=== PATIENT | female | born 1960 | race Caucasian/White ===

== ENCOUNTER 2021-08-31 19:15 | Inpatient (IN) | payer BC, OTHER ==
[2021-08-31 19:20] LABS: Glucose,Whole Blood 55 mg/dL (75-99)
[2021-08-31] MEDS ORDERED: DIPH,PERTUS(ACELL)TETVAC-LF 0.5 ML VIAL IM ONE (19:23)
[2021-08-31] MEDS ORDERED: SODIUM CHLORIDE 0.9% 1,000 ML IV STA ×2 (19:23→23:04)
[2021-08-31] MEDS ORDERED: fentaNYL (PF) 50 MCG/ML 2 ML AMP IVP STA (19:26)
[2021-08-31] MEDS ORDERED: DEXTROSE 50% SYRINGE 50 ML IVP STA (19:29)
[2021-08-31 19:46] LABS: Basophils % (A) 0 %; Eosinophils # (A) 0.2 k/uL (0-0.7); Eosinophils % (A) 2 %; HCT 39.6 % (34.0-46.0); HGB 13.3 gm/dL (11.4-16.0); Lymphocytes # (A) 1.2 k/uL (1.0-4.8); Lymphocytes % (A) 14 %; MCH 31.1 pg (25.0-35.0); MCHC 33.5 g/dL (31.0-37.0); Monocytes # (A) 0.4 k/uL (0-1.0); Monocytes % (A) 5 %; Neutrophils # (A) 6.7 k/uL (1.3-7.7); Neutrophils % (A) 77 %; Platelet Count 220 k/uL (150-450); RBC 4.26 m/uL (3.80-5.40); RDW 12.4 % (11.5-15.5); WBC 8.7 k/uL (3.8-10.6)
[2021-08-31 19:54] LABS: Glucose,Whole Blood 110 mg/dL (75-99)
[2021-08-31 20:08] LABS: Partial Thromboplastin Time 21.1 sec (22.0-30.0)
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
[2021-08-31] MEDS ORDERED: MORPHINE SULFATE 4 MG/ML SYRINGE IVP STA (20:37)
--- NOTE | 2021-08-31 20:53 | XR ---
EXAMINATION TYPE: XR ankle complete bilateral DATE OF EXAM: 08/31/2021 COMPARISON: NONE HISTORY: Pain TECHNIQUE: 6 views FINDINGS: There is bilateral plantar and Achilles calcaneal spurring. There is transverse fracture through the medial malleolus of the right ankle. There is no dislocation . Left ankle joint appears anatomic. IMPRESSION: There is nondisplaced medial malleolus fracture of the right ankle. No acute abnormality of the left ankle.
--- NOTE | 2021-08-31 20:54 | XR ---
EXAMINATION TYPE: XR foot complete bilateral DATE OF EXAM: 08/31/2021 COMPARISON: NONE HISTORY: Pain TECHNIQUE: 3 views each foot FINDINGS: Metatarsals are intact. I see no fracture nor dislocation. There is mild bilateral plantar and Achilles calcaneal spurring. The toes appear intact. IMPRESSION: No acute abnormality of the left and right foot.
--- NOTE | 2021-08-31 20:55 | XR ---
EXAMINATION TYPE: XR tibia fibula bilateral DATE OF EXAM: 08/31/2021 COMPARISON: NONE HISTORY: Pain TECHNIQUE: 4 views each tibia and fibula FINDINGS: There is a prosthesis in the medial compartment of the right knee. There is evidence of a 5 mm chip fracture of the head of the right fibula. There is nondisplaced transverse fracture through the medial malleolus of the right ankle. The left tibia and fibula appear intact. Left ankle appears intact. IMPRESSION: Acute fracture of the head of the right fibula and of the medial malleolus of the right a nkle.
--- NOTE | 2021-08-31 20:56 | XR ---
EXAMINATION TYPE: XR hand complete RT DATE OF EXAM: 08/31/2021 COMPARISON: NONE HISTORY: Pain TECHNIQUE: 3 views FINDINGS: Metacarpals are intact. There is minor spurring at the first carpometacarpal joint. There is impacted displaced transverse fracture of the distal radial metaphysis. There is no dislocat ion. There is ulnar styloid process fracture. IMPRESSION: Acute fractures with displacement of the distal radius and ulna.
--- NOTE | 2021-08-31 20:57 | XR ---
EXAMINATION TYPE: XR wrist complete RT DATE OF EXAM: 08/31/2021 COMPARISON: NONE HISTORY: Pain TECHNIQUE: 3 views FINDINGS: There is transverse impacted and comminuted fracture distal radial metaphysis. There is gabriella roximate 12 mm lateral displacement of the distal radius fragment. There is displaced ulnar styloid p rocess fracture. The carpal bones are intact. IMPRESSION: Acute displaced fractures of the distal radius and ulna.
--- NOTE | 2021-08-31 20:58 | XR ---
EXAMINATION TYPE: XR forearm RT DATE OF EXAM: 08/31/2021 COMPARISON: NONE HISTORY: Pain TECHNIQUE: 3 views FINDINGS: There is a transverse fractures of the distal radius and ulna as described in the wrist x-r ay report. The elbow joint is intact. IMPRESSION: Distal radius and ulna displaced fractures.
--- NOTE | 2021-08-31 20:59 | XR ---
EXAMINATION TYPE: XR pelvis AP view DATE OF EXAM: 08/31/2021 COMPARISON: NONE HISTORY: Pain TECHNIQUE: Single view FINDINGS: The thick ring is intact. Proximal femurs and hip joints are intact. There is contrast in t he urinary bladder. Sacroiliac joints are intact. IMPRESSION: No fracture.
--- NOTE | 2021-08-31 21:00 | XR ---
EXAMINATION TYPE: XR elbow complete RT DATE OF EXAM: 08/31/2021 COMPARISON: NONE HISTORY: Pain TECHNIQUE: 3 views FINDINGS: Elbow joint is intact. I see no fracture nor dislocation. There is no sign of elbow joint e ffusion. IMPRESSION: Negative right elbow exam.
--- NOTE | 2021-08-31 21:00 | XR ---
EXAMINATION TYPE: XR chest 1V portable DATE OF EXAM: 08/31/2021 COMPARISON: NONE HISTORY: Pain TECHNIQUE: Single view FINDINGS: Heart and mediastinum are normal. Lungs are clear of consolidation. There is mild subsegmen gomez atelectasis left lung base. There is no pleural effusion. Trachea is midline. Bony thorax appears intact. IMPRESSION: Mild subsegmental atelectasis left lung base. Normal heart.
--- NOTE | 2021-08-31 21:01 | XR ---
EXAMINATION TYPE: XR femur RT DATE OF EXAM: 08/31/2021 COMPARISON: NONE HISTORY: Pain TECHNIQUE: 4 views FINDINGS: Hip joint is intact. There is prosthesis in the medial compartment of the right knee. I see no fracture nor dislocation. There is small right knee joint effusion. IMPRESSION: Small knee joint effusion. No fracture seen.
[2021-08-31 21:14] LABS: Glucose,Whole Blood 84 mg/dL (75-99)
[2021-08-31] MEDS ORDERED: ONDANSETRON 4 MG/2 ML VIAL IVP STA (21:19)
[2021-08-31] MEDS ORDERED: NALOXONE 0.4 MG/ML 1 ML VIAL IV PRN (21:29)
[2021-08-31] MEDS ORDERED: LIDOCAINE 1% INJ 10MG/ML (20 ML MDV) SQ ONE (21:29)
[2021-08-31 22:02] LABS: Amphetamine Screen,Urine Not Detected (NotDetected); Barbiturate Screen,Urine Not Detected (NotDetected); Benzodiazepines Screen,Urine Not Detected (NotDetected); Cocaine Screen,Urine Not Detected (NotDetected); Methadone Screen, Urine Not Detected (NotDetected); Opiate Screen,Urine Not Detected (NotDetected); Oxycodone Screen, Urine Not Detected (NotDetected); Phencyclidine Screen,Urine Not Detected (NotDetected); Tricyclic Antidepressant,Urine Not Detected (NotDetected); Urn Cannabinoid Scrn Not Detected (NotDetected)
[2021-08-31] MEDS ORDERED: TOPICAL SKIN ADHESIVE 1 EACH AMP TOPICAL STA (22:06)
[2021-08-31 22:14] LABS: Appearance,Urine Clear (Clear); Bilirubin,Urine Negative (Negative); Blood,Urine Small (Negative); Color,Urine Yellow; Glucose,Urine (UA) Trace (Negative); Ketones,Urine Negative (Negative); Leukocyte Esterase,Urine Negative (Negative); Mucus,Urine Rare /hpf; Nitrite,Urine Negative (Negative); PH, Urine 5.5 (5.0-8.0); Protein,Urine Trace (Negative); RBC,Urine 25 /hpf (0-5); Specific Gravity,Urine 1.018 (1.001-1.035); Squamous Epithelial Cell,Urine <1 /hpf (0-4); Urobilinogen,Urine <2.0 mg/dL (<2.0); WBC,Urine 1 /hpf (0-5)
[2021-08-31 22:33] LABS: Glucose,Whole Blood 139 mg/dL (75-99)
[2021-08-31] MEDS ORDERED: fentaNYL (PF) 50 MCG/ML 2 ML AMP IVP PRN (23:04)
[2021-08-31 23:21] LABS: ALT 89 U/L (4-34); African American GFR (CKD) >90 (>60 ml/min/1.73 sqM); Albumin 3.8 g/dL (3.5-5.0); Alcohol <10 mg/dL; Anion Gap 9 mmol/L; Blood Urea Nitrogen 14 mg/dL (7-17); Calcium 8.4 mg/dL (8.4-10.2); Carbon Dioxide 18 mmol/L (22-30); Chloride 107 mmol/L (98-107); Glucose 251 mg/dL (74-99); Non-African American GFR(CKD) >90 (>60 ml/min/1.73 sqM); Sodium 134 mmol/L (137-145); Total Bilirubin 0.8 mg/dL (0.2-1.3); Total Protein 6.5 g/dL (6.3-8.2)
[2021-08-31 23:50] LABS: AST 165 U/L (14-36); Alkaline Phosphatase 198 U/L (38-126); Potassium 4.1 mmol/L (3.5-5.1)
[2021-08-31] MEDS: ONDANSETRON 4 MG/2 ML VIAL IVP PRN (23:57)
[2021-08-31] MEDS: SODIUM CHLORIDE 0.9% 1,000 ML IV SCH (23:59)
[2021-09-01] MEDS ORDERED: CALCIUM CARBONATE 500 MG CHEWABLE PO ONE (04:20)
[2021-09-01 05:22] LABS: Glucose,Whole Blood 366 mg/dL (75-99)
[2021-09-01] MEDS: ONDANSETRON 4 MG/2 ML VIAL IVP PRN (06:39)
[2021-09-01] MEDS: LEVOTHYROXINE 112 MCG TAB PO SCH (06:40)
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
[2021-09-01 07:56] LABS: Glucose,Whole Blood 206 mg/dL (75-99)
[2021-09-01] MEDS: INSULIN ASPART (NovoLOG) 100 UNIT/ML VIAL SQ SCH ×3 (07:57→21:26)
[2021-09-01] MEDS: SODIUM CHLORIDE 0.9% 1,000 ML IV SCH ×2 (08:19→22:26)
[2021-09-01] MEDS ORDERED: HYDROcodone/APAP 7.5-325MG 1 EACH TAB PO PRN (08:32)
[2021-09-01] MEDS ORDERED: ACETAMINOPHEN TAB 325 MG TAB PO PRN (08:32)
[2021-09-01] MEDS ORDERED: INSULIN NPH 300 UNIT/3 ML VIAL SQ SCH ×2 (09:00→21:00)
[2021-09-01 09:03] LABS: ALT 79 U/L (4-34); African American GFR (CKD) >90 (>60 ml/min/1.73 sqM); Albumin 3.8 g/dL (3.5-5.0); Anion Gap 6 mmol/L; Blood Urea Nitrogen 11 mg/dL (7-17); Calcium 9.2 mg/dL (8.4-10.2); Carbon Dioxide 23 mmol/L (22-30); Chloride 104 mmol/L (98-107); Glucose 210 mg/dL (74-99); Non-African American GFR(CKD) >90 (>60 ml/min/1.73 sqM); Sodium 133 mmol/L (137-145); Total Bilirubin 1.3 mg/dL (0.2-1.3); Total Protein 6.7 g/dL (6.3-8.2)
[2021-09-01 09:04] LABS: AST 108 U/L (14-36); Potassium 4.5 mmol/L (3.5-5.1)
[2021-09-01 09:05] LABS: Alkaline Phosphatase 182 U/L (38-126)
[2021-09-01 09:18] LABS: Basophils % (A) 0 %; Eosinophils % (A) 0 %; HGB 12.1 gm/dL (11.4-16.0); Lymphocytes # (A) 0.5 k/uL (1.0-4.8); Lymphocytes % (A) 5 %; MCH 30.5 pg (25.0-35.0); MCHC 31.8 g/dL (31.0-37.0); MCV 95.7 fL (80.0-100.0); Mean Platelet Volume 7.3; Monocytes # (A) 0.3 k/uL (0-1.0); Monocytes % (A) 4 %; Neutrophils # (A) 7.7 k/uL (1.3-7.7); Neutrophils % (A) 90 %; Platelet Count 214 k/uL (150-450); RBC 3.97 m/uL (3.80-5.40); RDW 12.7 % (11.5-15.5); WBC 8.6 k/uL (3.8-10.6)
[2021-09-01 09:27] LABS: Prothrombin Time 11.1 sec (9.0-12.0)
[2021-09-01] MEDS: HEPARIN SODIUM,PORCINE/PF 5,000 UNIT/0.5 ML SYRINGE SQ SCH ×3 (10:34→23:33)
[2021-09-01] MEDS: FAMOTIDINE 20 MG/2 ML VIAL IV SCH ×2 (10:34→22:23)
[2021-09-01] MEDS: HYDROmorphone 1 MG/ML 1 ML SYRINGE IVP PRN (10:35)
[2021-09-01] MEDS ORDERED: ONDANSETRON 4 MG/2 ML VIAL IVP PRN (11:01)
[2021-09-01 11:47] LABS: Glucose,Whole Blood 239 mg/dL (75-99)
[2021-09-01] MEDS: KETOROLAC 30 MG/ML 1 ML VIAL IVP SCH ×3 (12:51→23:32)
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
[2021-09-01 16:55] LABS: Glucose,Whole Blood 294 mg/dL (75-99)
[2021-09-01] MEDS ORDERED: IV FLUID CONTINUATION 1,000 ML IV ONE (17:10)
[2021-09-01] MEDS ORDERED: ONDANSETRON 4 MG/2 ML VIAL IVP ONE (17:19)
[2021-09-01] MEDS ORDERED: INSULIN ASPART (NovoLOG) 100 UNIT/ML VIAL SQ ONE ×2 (17:23→20:44)
[2021-09-01] MEDS ORDERED: MIDAZOLAM 2 MG/2 ML VIAL IVP ONE (17:26)
[2021-09-01] MEDS ORDERED: fentaNYL (PF) 50 MCG/ML 2 ML AMP IVP ONE (17:27)
[2021-09-01] MEDS ORDERED: ALBUTEROL NEBULIZED 2.5 MG/3 ML INHALATION PRN (18:33)
[2021-09-01] MEDS ORDERED: LIDOCAINE 1%-EPI 1:100,000 20 ML VIAL ONE (18:34)
[2021-09-01] MEDS ORDERED: PROPOFOL 10 MG/ML 20 ML VIAL IV ONE (18:34)
[2021-09-01] MEDS ORDERED: HYDROmorphone (PF) 1 MG/ML ONE (18:34)
[2021-09-01] MEDS ORDERED: MIDAZOLAM 2 MG/2 ML VIAL ONE (18:34)
[2021-09-01] MEDS ORDERED: SUCCINYLCHOLINE CHLORIDE 100 MG/5 ML SYR IV ONE (18:34)
[2021-09-01] MEDS ORDERED: fentaNYL (PF) 50 MCG/ML 2 ML AMP ONE (18:34)
[2021-09-01] MEDS ORDERED: LIDOCAINE 1% INJ 10MG/ML (20 ML MDV) ONE (18:34)
[2021-09-01] MEDS ORDERED: ROPIVACAINE 5 MG/ML 30 ML VIAL ONE (18:34)
[2021-09-01] MEDS ORDERED: SODIUM CHLORIDE 0.9% 100 ML with ceFAZolin 2,000 MG IV ONE ×2 (18:50)
--- NOTE | 2021-09-01 19:09 | P.ANPRN ---
Procedure Note - Anesthesia - Nerve Block Performed Right Supraclavicular Single Time Out Performed: Yes Date of Procedure: 09/01/21 Procedure Start Time: 17:25 Procedure Stop Time: 17:24 Location of Patient: PreOp Indication: Requested by Surgeon Specifically requested for management of pain by : Marques Rizzo Sedation Type: Sedate with meaningful contact maintained Preparation: Sterile Prep Position: Supine Needle Types: Pajunk Needle Gauge: 21 Ultrasound used to visualize needle placement: Yes Ultrasound used to observe medication spread: Yes Injectate: 0.5% Ropivacaine (see comment for volume) (10 ml + Lidocaine 10 ml 1% with epi 1/200 k) Blood Aspirated: No Pain Paresthesia on Injection Noted: No Resistance on Injection: Normal Image Stored and Saved: Yes Events: Uneventful and Well Tolerated
[2021-09-01] MEDS ORDERED: ceFAZolin 1,000 MG in SODIUM CHLORIDE 0.9% 1,000 ML IRRIGATION ONE (19:12)
[2021-09-01] MEDS: ALBUTEROL NEBULIZED 2.5 MG/3 ML INHALATION SCH (19:19)
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
[2021-09-01 20:42] LABS: Glucose,Whole Blood 243 mg/dL (75-99)
[2021-09-01] MEDS ORDERED: HYDROmorphone 0.2 MG/1 ML SYRINGE IVP PRN (20:42)
[2021-09-01] MEDS ORDERED: HYDROmorphone 0.5 MG/0.5 ML SYRINGE IVP ONE ×2 (20:50→20:56)
[2021-09-01] MEDS ORDERED: LACTATED RINGERS 1,000 ML IV ONE (20:54)
--- NOTE | 2021-09-01 21:36 | XR ---
INDICATION PROVIDED: Intraoperative right wrist ORIF. COMPARISON: Radiographs 08/31/2021. TECHNIQUE: 2 stored intraoperative fluoroscopic images of the right wrist in the AP and lateral proje ctions were created. FINDINGS: Intraoperative fluoroscopic images of the right wrist obtained during ORIF. Total fluoroscopic time is 37 seconds. IMPRESSION: Intraoperative right wrist ORIF. Please see operative report for details.
[2021-09-01] MEDS: PANTOPRAZOLE 40 MG/10 ML VIAL IVP SCH (22:23)
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
[2021-09-02] MEDS: LEVOTHYROXINE 112 MCG TAB PO SCH (05:51)
[2021-09-02] MEDS: KETOROLAC 30 MG/ML 1 ML VIAL IVP SCH ×2 (05:51→12:23)
[2021-09-02] MEDS: SODIUM CHLORIDE 0.9% 1,000 ML IV SCH ×2 (05:52→15:06)
[2021-09-02 06:07] LABS: Basophils % (A) 0 %; Eosinophils # (A) 0.1 k/uL (0-0.7); Eosinophils % (A) 1 %; HCT 38.4 % (34.0-46.0); HGB 12.1 gm/dL (11.4-16.0); Hypochromasia Slight; Lymphocytes # (A) 0.7 k/uL (1.0-4.8); Lymphocytes % (A) 8 %; MCH 31.1 pg (25.0-35.0); MCHC 31.5 g/dL (31.0-37.0); MCV 98.5 fL (80.0-100.0); Mean Platelet Volume 7.7; Monocytes # (A) 0.5 k/uL (0-1.0); Monocytes % (A) 6 %; Neutrophils # (A) 6.7 k/uL (1.3-7.7); Neutrophils % (A) 82 %; Platelet Count 186 k/uL (150-450); RBC 3.89 m/uL (3.80-5.40); RDW 12.6 % (11.5-15.5); WBC 8.1 k/uL (3.8-10.6)
[2021-09-02 06:31] LABS: ALT 59 U/L (4-34); AST 54 U/L (14-36); African American GFR (CKD) >90 (>60 ml/min/1.73 sqM); Albumin 3.4 g/dL (3.5-5.0); Alkaline Phosphatase 159 U/L (38-126); Anion Gap 9 mmol/L; Blood Urea Nitrogen 12 mg/dL (7-17); Calcium 8.7 mg/dL (8.4-10.2); Carbon Dioxide 19 mmol/L (22-30); Chloride 107 mmol/L (98-107); Glucose 286 mg/dL (74-99); Non-African American GFR(CKD) 84 (>60 ml/min/1.73 sqM); Potassium 4.7 mmol/L (3.5-5.1); Sodium 135 mmol/L (137-145)
[2021-09-02 07:31] LABS: Glucose,Whole Blood 301 mg/dL (75-99)
[2021-09-02] MEDS: PANTOPRAZOLE 40 MG/10 ML VIAL IVP SCH (09:25)
[2021-09-02] MEDS: INSULIN ASPART (NovoLOG) 100 UNIT/ML VIAL SQ SCH ×2 (09:26→13:18)
[2021-09-02] MEDS: FAMOTIDINE 20 MG/2 ML VIAL IV SCH (09:26)
[2021-09-02] MEDS: HEPARIN SODIUM,PORCINE/PF 5,000 UNIT/0.5 ML SYRINGE SQ SCH ×2 (09:26→15:06)
[2021-09-02] MEDS: ALBUTEROL NEBULIZED 2.5 MG/3 ML INHALATION SCH ×2 (09:42→12:41)
--- NOTE | 2021-09-02 10:09 | P.PN ---
Progress Note - Text Progress Note Date: 09/02/21 Diagnosis: Distal radius fracture; right medial malleolar fracture; right fibula fracture - Distal radius fracture ORIF performed yesterday, Wednesday09/01/2021. Patient in splint currently - Long CAM walker boot ordered for right medial malleolar fracture/right fibula fracture. Wheelchair ordered and needed for patient to complete ADL's which is unable to be done due to fracture and non-weight bearing status. Patient is able to propel herself
--- NOTE | 2021-09-02 10:50 | FL ---
EXAMINATION TYPE: FL guidance operating room DATE OF EXAM: 09/01/2021 FLUOROSCOPY Fluoroscopy time of 37 seconds was used during right wrist ORIF. 2 image/s document/s the procedure.
[2021-09-02] MEDS ORDERED: INSULIN NPH 300 UNIT/3 ML VIAL SQ SCH ×2 (11:15→21:00)
[2021-09-02 11:37] LABS: Glucose,Whole Blood 305 mg/dL (75-99)
[2021-09-02] MEDS: HYDROmorphone 1 MG/ML 1 ML SYRINGE IVP PRN (13:16)
[2021-09-02 14:36] VITALS: BP 136/82; PULSE 97; RESP 20; TEMP 98.7
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
[2021-09-02] MEDS ORDERED: FAMOTIDINE 20 MG TAB PO SCH (21:00)
[2021-09-03] MEDS ORDERED: PANTOPRAZOLE 40 MG TABLET PO SCH (07:30)
== END 2021-09-02 15:49 | disposition home or self-care (01) | DRG 511 ==
LOC: EC 19:15 → 4SSUR 21:30 → 3NCARDOBS 09-01 06:44
PROVIDERS: ADMIT Surgery; ATTEND Surgery
PROC: 0HQ1XZZ Repair Face Skin, External Approach (ICD-10-PCS; 2021-08-31)
PROC: 0HQKXZZ Repair Right Lower Leg Skin, External Approach (ICD-10-PCS; 2021-08-31)
PROC: 0PSH04Z Reposition Right Radius with Internal Fixation Device, Open Approach (ICD-10-PCS; principal; 2021-09-01 14:00)
PROC: 8E0 Other Procedures, Physiological Systems and Anatomical Regions, Other Procedures (ICD-10-PCS; 2021-09-02)
DX: S52.571A Other intraarticular fracture of lower end of right radius, initial encounter for closed fracture (principal); S06.0X9A Concussion with loss of consciousness of unspecified duration, initial encounter; E87.1 Hypo-osmolality and hyponatremia; J98.11 Atelectasis; S81.811A Laceration without foreign body, right lower leg, initial encounter; S82.831A Other fracture of upper and lower end of right fibula, initial encounter for closed fracture; S82.54XA Nondisplaced fracture of medial malleolus of right tibia, initial encounter for closed fracture; R50.9 Fever, unspecified; R79.89 Other specified abnormal findings of blood chemistry; V89.2XXA Person injured in unspecified motor-vehicle accident, traffic, initial encounter; Z20.822 Contact with and (suspected) exposure to COVID-19; D72.810 Lymphocytopenia; E03.9 Hypothyroidism, unspecified; E11.649 Type 2 diabetes mellitus with hypoglycemia without coma; M19.90 Unspecified osteoarthritis, unspecified site; V43.62XA Car passenger injured in collision with other type car in traffic accident, initial encounter; Y92.410 Unspecified street and highway as the place of occurrence of the external cause; Z79.890 Hormone replacement therapy; Z83.3 Family history of diabetes mellitus; Z79.4 Long term (current) use of insulin; Z79.899 Other long term (current) drug therapy; Z88.8 Allergy status to other drugs, medicaments and biological substances
CPT/HCPCS: 12002; 12011; 29125; 29515; 36415; 64415; 70450; 71045; 71260; 72125; 72129; 72132; 72170; 74177; 76942; 80053; 80306; 80320; 81001; 81025; 85025; 85610; 85730; 86850; 86900; 86901; 87635; 90471; 90715; 96361; 96365; 96375; 99291

== ENCOUNTER 2021-09-10 11:35 | Day surgery (SDC) | payer BC, OTHER ==
[2021-09-05 09:23] VITALS: BMI 31.3
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
[2021-09-10] MEDS ORDERED: SCOPOLAMINE 1.5MG/72HR PATCH TRANSDERM ONE (12:09)
[2021-09-10] MEDS ORDERED: DEXAMETHASONE SOD PHOSPHATE 4 MG/ML 1 ML VIAL IV ONE (12:09)
[2021-09-10] MEDS ORDERED: ONDANSETRON 4 MG/2 ML VIAL IVP ONE (12:09)
[2021-09-10] MEDS ORDERED: LACTATED RINGERS 1,000 ML IV SCH (12:09)
[2021-09-10] MEDS ORDERED: LIDOCAINE 1% (10MG/ML) FOR IV START INTRADERMA PRN (12:09)
[2021-09-10] MEDS ORDERED: HYDROmorphone 0.5 MG/0.5 ML SYRINGE IVP PRN (12:09)
[2021-09-10 12:50] LABS: Glucose,Whole Blood 342 mg/dL (75-99)
[2021-09-10] MEDS ORDERED: INSULIN ASPART (NovoLOG) 100 UNIT/ML VIAL SQ ONE (12:59)
[2021-09-10] MEDS ORDERED: MIDAZOLAM 2 MG/2 ML VIAL IVP ONE ×2 (13:03→13:51)
[2021-09-10] MEDS ORDERED: PROPOFOL 10 MG/ML 20 ML VIAL IV ONE (14:09)
[2021-09-10] MEDS ORDERED: fentaNYL (PF) 50 MCG/ML 2 ML AMP ONE (14:09)
[2021-09-10] MEDS ORDERED: ROCURONIUM 10 MG/ML (5 ML VIAL) IV ONE (14:09)
[2021-09-10] MEDS ORDERED: ROPIVACAINE 5 MG/ML 30 ML VIAL ONE (14:09)
[2021-09-10] MEDS ORDERED: GLYCOPYRROLATE 0.2 MG/ML 2 ML VIAL ONE (14:09)
[2021-09-10] MEDS ORDERED: KETOROLAC 15 MG/ML 1 ML VIAL ONE (14:09)
[2021-09-10] MEDS ORDERED: SUCCINYLCHOLINE CHLORIDE 100 MG/5 ML SYR IV ONE (14:09)
[2021-09-10] MEDS ORDERED: NEOSTIGMINE 1 MG/ML 10 ML VIAL ONE (14:09)
[2021-09-10] MEDS ORDERED: DEXAMETHASONE SOD PHOSPHATE 4 MG/ML 1 ML VIAL ONE (14:09)
[2021-09-10] MEDS ORDERED: fentaNYL (PF) 50 MCG/ML 2 ML AMP IVP ONE (14:10)
--- NOTE | 2021-09-10 14:15 | P.ANPRN ---
Procedure Note - Anesthesia - Nerve Block Performed Right Adductor Canal Single Time Out Performed: Yes Date of Procedure: 09/10/21 Procedure Start Time: 13:02 Procedure Stop Time: 13:08 Location of Patient: PreOp Indication: Acute Post-Operative Pain, Requested by Surgeon Sedation Type: Sedate with meaningful contact maintained Preparation: Sterile Prep Position: Supine Needle Types: Pajunk Needle Gauge: 21 Ultrasound used to visualize needle placement: Yes Ultrasound used to observe medication spread: Yes Blood Aspirated: No Pain Paresthesia on Injection Noted: No Resistance on Injection: Normal Image Stored and Saved: Yes Events: Uneventful and Well Tolerated (ropi .5% 20cc plus dexamethasone 4mg)
--- NOTE | 2021-09-10 14:17 | P.ANPRN ---
Procedure Note - Anesthesia - Nerve Block Performed Right Popliteal Single Time Out Performed: Yes Date of Procedure: 09/10/21 Procedure Start Time: 13:50 Procedure Stop Time: 14:01 Location of Patient: PreOp Indication: Acute Post-Operative Pain, Requested by Surgeon Sedation Type: Sedate with meaningful contact maintained Preparation: Sterile Prep Position: Left Lateral Needle Types: Pajunk Needle Gauge: 21 Ultrasound used to visualize needle placement: Yes Ultrasound used to observe medication spread: Yes Blood Aspirated: No Pain Paresthesia on Injection Noted: No Resistance on Injection: Normal Image Stored and Saved: Yes Events: Uneventful and Well Tolerated (ropi .5% 20cc)
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
[2021-09-10 15:19] LABS: Glucose,Whole Blood 215 mg/dL (75-99)
[2021-09-10 15:22] VITALS: RESP 16; TEMP 97.1
--- NOTE | 2021-09-10 15:38 | XR ---
Fluoroscopy INDICATION: Pain FINDINGS: Fluoroscopy time: 9 seconds. Images obtained: 4. IMPRESSIONS: 1. Documentation of fluoroscopy.
--- NOTE | 2021-09-10 15:42 | FL ---
Fluoroscopy INDICATION: Pain FINDINGS: Fluoroscopy time: 9 seconds. Images obtained: 0. IMPRESSIONS: 1. Documentation of fluoroscopy.
[2021-09-10 16:35] VITALS: BP 128/63; PULSE 68
== END 2021-09-10 17:21 | disposition home or self-care (01) ==
LOC: OR 11:35
PROVIDERS: ATTEND Orthopaedic Surgery
DX: S82.52XA Displaced fracture of medial malleolus of left tibia, initial encounter for closed fracture (principal)
CPT/HCPCS: 27766; 64447; 64445; 76942; 73600; C1713; J2250; J1100; J2710; J2405; J0690; J3010; J2795; J1885; J0330; J2704

== ENCOUNTER → 2024-02-23 | Outpatient (CLI) | payer MEDICAID ==
[2024-02-23 14:20] LABS: African American GFR (CKD) >90 (>60 ml/min/1.73 sqM); Blood Urea Nitrogen 17 mg/dL (7-17); Non-African American GFR(CKD) >90 (>60 ml/min/1.73 sqM)
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
--- NOTE | 2024-02-26 18:13 | MM ---
Reason for Exam: Screening (asymptomatic). Patient History: Menarche at age 14. First Full-Term at age 24. Postmenopausal. Risk Values: Soraida 5 year model risk: 1.3%. NCI Lifetime model risk: 6.4%. Tissue Density: The breasts are heterogeneously dense, which may obscure small masses. Findings: Analyzed By CAD. Nodularity posterior outer aspect of the right breast may represent a low axillary tail lymph node but further evaluation is recommended. Otherwise, no significant mass, suspicious microcalcification, or other discrete abnormality is seen. Overall Assessment: Incomplete: need additional imaging evaluation, BI-RAD 0 Management: Special View Mammogram of the right breast. Diagnostic Breast Ultrasound of the right breast. [facility] will attempt to contact patient to return for supplemental views and ultrasound if indicated. Electronically signed and approved by: Derrick Carrera M.D. Radiologist
== END | disposition home or self-care (01) ==
LOC: RADMAMWWP 12:31
PROVIDERS: ATTEND Family Medicine
DX: Z12.31 Encounter for screening mammogram for malignant neoplasm of breast (principal); R51.9 Headache, unspecified; R42 Dizziness and giddiness
CPT/HCPCS: 82565; 84520; 77067; 77063; 70470; 36415; Q9967

== ENCOUNTER → 2024-03-01 | Outpatient (CLI) | payer MEDICAID ==
--- NOTE | 2024-03-01 14:02 | MM ---
Reason for Exam: Additional evaluation requested from abnormal screening. Last screening mammogram was performed less than 1 month ago. Patient History: Menarche at age 14. First Full-Term at age 24. Postmenopausal. Risk Values: Soraida 5 year model risk: 1.3%. NCI Lifetime model risk: 6.4%. Prior Study Comparison: 02/23/2024 Bilateral MG 3D screening mammo w/cad, [facility]. Tissue Density: Right: The breasts are heterogeneously dense, which may obscure small masses. Findings: Analyzed By CAD. The pattern is symmetrical. There is a 0.6 cm nodule in the upper outer posterior right breast is a smooth margins and is located centimeters nipple. Additional evaluation with ultrasound is recommended. Findings appears to be new from comparison studies. Overall Assessment: Incomplete: need additional imaging evaluation, BI-RAD 0 Management: Diagnostic Breast Ultrasound of the right breast. A negative mammogram report should not preclude additional follow up of suspicious palpable abnormalities. Patient should continue monthly self breast exam. A clinical breast exam by your physician is recommended on an annual basis and results should be correlated with mammographic findings. Note on Soraida scores and lifetime risk: 1. A Soraida score greater than 3% is considered moderate risk. If this is the case, consider specialist referral to assess eligibility for a risk reducing agent. 2. If overall lifetime risk for the development of breast cancer is 20% or higher, the patient may qualify for future screening with alternating mammogram and breast MRI. Electronically signed and approved by: Bharathi Ann D.O. Radiologis
--- NOTE | 2024-03-01 14:43 | USB ---
Reason for Exam: Additional evaluation requested from abnormal screening. Patient History: Menarche at age 14. First Full-Term at age 24. Postmenopausal. Risk Values: Soraida 5 year model risk: 1.3%. NCI Lifetime model risk: 6.4%. Technique: Method: Targeted. Prior Study Comparison: 02/23/2024 Bilateral MG 3D screening mammo w/cad, [facility]. Findings: The upper outer quadrant of the right breast, the axilla of the right breast and the retroareolar of the right breast were scanned. No solid or cystic masses are identified.. No suspicious cyst or mass evident. Vague isoechoic area potentially could be present. Short-term follow-up is recommended. Overall Assessment: Probably benign, BI-RAD 3 Management: Diagnostic Breast Ultrasound of the right breast in 6 months. A clinical breast exam by your physician is recommended on an annual basis and results should be correlated with mammographic findings. This exam should not preclude additional follow-up of suspicious palpable abnormalities. Results were given to the patient verbally at the time of exam. Electronically signed and approved by: Bharathi Ann D.O. Radiologis
== END | disposition home or self-care (01) ==
LOC: RADMAMWWP 12:39
PROVIDERS: ATTEND Family Medicine
DX: R92.8 Other abnormal and inconclusive findings on diagnostic imaging of breast (principal); R92.331 Mammographic heterogeneous density, right breast; Z78.0 Asymptomatic menopausal state
CPT/HCPCS: 77061; 77065

== ENCOUNTER 2024-06-28 08:15 | Day surgery (SDC) | payer MEDICAID ==
[2024-06-28] MEDS: IV FLUID CONTINUATION 1,000 ML IV ONE (08:32)
[2024-06-28 08:44] VITALS: TEMP 97.9
[2024-06-28] MEDS: LACTATED RINGERS 1,000 ML IV SCH (08:44)
[2024-06-28] MEDS: ONDANSETRON 4 MG/2 ML VIAL IVP STA (08:45)
[2024-06-28 08:56] LABS: Glucose,Whole Blood 165 mg/dL (70-110)
[2024-06-28] MEDS ORDERED: LIDOCAINE 1% INJ 10MG/ML (20 ML MDV) ONE (09:10)
[2024-06-28] MEDS ORDERED: PROPOFOL 10 MG/ML 20 ML VIAL IV ONE (09:10)
--- NOTE | 2024-06-28 09:28 | P.PCN ---
Date of Procedure: 06/28/24 Procedure(s) Performed: BRIEF HISTORY: Patient is a 63-year-old pleasant white female scheduled for an elective colonoscopy as a part of for colon cancer/positive Cologuard. PROCEDURE PERFORMED: Colonoscopy with snare polypectomy. PREOPERATIVE DIAGNOSIS: Screening for colon cancer/positive Cologuard. IV sedation per Anesthesia. PROCEDURE: After informed consent was obtained, the patient, was brought into the endoscopy unit. IV sedation was administered by Anesthesia under continuous monitoring. Digital rectal examination was normal. Initially the Olympus CF-160 flexible video colonoscope was then inserted in the rectum, gradually advanced into the cecum without any difficulty. Careful examination was performed as the scope was gradually being withdrawn. Ileocecal valve and the appendiceal orifice were visualized and appeared normal. Prep was excellent. Mucosa of the cecum, appeared normal. In the ascending colon there was a 1 cm broad-based polyp removed by snare polypectomy. Rest of the ascending colon, transverse colon, descending colon, sigmoid colon, and rectum appeared normal. In the proximal rectum there was a 5 mm polyp removed by cold snare polypectomy.. Retroflexion was performed in the rectum and no lesions were seen. The patient tolerated the procedure well. IMPRESSION: 1 cm broad-based ascending colon polyp status post snare polypectomy 5 mm proximal rectal polyp status post snare polypectomy RECOMMENDATIONS: Findings of this examination were discussed with the patient as well as her family. She was advised to follow-up with the biopsy results. If the biopsy reveals adenoma she can have repeat colonoscopy in 3 years..
[2024-06-28 10:19] VITALS: BP 140/74; PULSE 66; RESP 18
== END 2024-06-28 10:38 | disposition home or self-care (01) ==
LOC: ORWHC2ENDO 08:15
PROVIDERS: ATTEND Internal Medicine Gastroenterology
DX: D12.2 Benign neoplasm of ascending colon (principal); K62.1 Rectal polyp; E11.9 Type 2 diabetes mellitus without complications; E03.9 Hypothyroidism, unspecified; K21.9 Gastro-esophageal reflux disease without esophagitis; Z88.8 Allergy status to other drugs, medicaments and biological substances; Z79.890 Hormone replacement therapy; Z79.899 Other long term (current) drug therapy; Z79.4 Long term (current) use of insulin
CPT/HCPCS: 45385; J2405; J2003; J2704; 88305

== ENCOUNTER → 2024-08-31 | Outpatient (CLI) | payer MEDICAID ==
[2024-09-01 03:57] LABS: T4, Free (Free Thyroxine) 1.36 ng/dL (0.80-1.80)
== END | disposition home or self-care (01) ==
LOC: LABPAT 12:10
PROVIDERS: ATTEND Orthopaedic Surgery
DX: M17.11 Unilateral primary osteoarthritis, right knee (principal); Z22.322 Carrier or suspected carrier of Methicillin resistant Staphylococcus aureus
CPT/HCPCS: 84439; 84443; 87070

== ENCOUNTER 2024-09-05 07:52 | Inpatient (IN) | payer MEDICAID ==
--- NOTE | 2024-09-04 08:17 | P.HPOR ---
History of Present Illness H&P Date: 09/04/24 Chief Complaint: Right knee pain The patient is a 63-year-old female who presents with progressive right knee pain for the past couple of years. She underwent right knee unicompartmental arthroplasty in 2019. She is having pain with any weightbearing activities in addition it worsens with getting up from a seated position. She notes daily pain that limits her. She has tried medications along with therapy and activity modifications with worsening of her symptoms. Review of Systems Per HPI Past Medical History Past Medical History: Diabetes Mellitus, Thyroid Disorder Additional Past Medical History / Comment(s): IDDM type II, neuropathy bilateral feet, hypothyroid. History of Any Multi-Drug Resistant Organisms: MRSA Date of last positivie culture/infection: 2011 MDRO Source:: spider bite Past Surgical History: Section, Joint Replacement, Orthopedic Surgery Additional Past Surgical History / Comment(s): R knee surgeries x3 including partial replacement, pins screws in rt ankle, plates in rt wrist, scope of scar tissue on rt ankle Past Anesthesia/Blood Transfusion Reactions: Postoperative Nausea & Vomiting (PONV) Smoking Status: Never smoker - Past Family History Mother Family Medical History: Diabetes Mellitus Additional Family Medical History / Comment(s): IDDM type 1 Father Family Medical History: Cancer Additional Family Medical History / Comment(s): Father is . Medications and Allergies Home Medications Medication Instructions Recorded Confirmed Type Levothyroxine Sodium [Synthroid] 100 mcg PO MOTUWETHFRSA 08/31/21 08/31/24 History Insulin Aspart (For Pump) [NovoLOG 0.01 unit SQ-PUMP CONTINUOUS 06/26/24 08/31/24 History (For Pump)] Allergies Allergy/AdvReac Type Severity Reaction Status Date / Time JEISON Inhibitors Allergy Rash/Hives Verified 08/31/24 15:41 Physical Examination - Knee right Appearance: effusion Effusion grade: grade 2 Tenderness with palpation: anterior, medial, lateral Pain: throughout ROM Gait: limping ROM: extension: -15 degrees ROM: flexion: 100 degrees Crepitus with motion: Yes Strength: extension: 5/5 Strength: flexion: 5/5 Meniscal tests: lateral meniscal tests: positive, lateral joint line pain: positive Results The patient is a well-developed well-nourished female approximately 5 foot 7, 212 pounds of endomorphic habitus. HEENT exam is nonfocal, neck is supple. She has painless passive motion of her right hip. Straight leg raise is negative. She is tender about the medial and lateral joint line of the right knee. She has genu valgum alignment. Collaterals are stable, Cj's negative, posterior drawer is negative. Her distal neurovascular exam appears intact in the right lower extremity. - Diagnostic results Knee x-ray: image reviewed (X-rays of the right knee obtained the office show a medial compartment arthroplasty in addition to severe lateral joint space narrowing.) Assessment and Plan Assessment: Right knee severe lateral compartment osteoarthrosis History of right knee medial unicompartmental arthroplasty Insulin-dependent diabetes Plan: I talked to the patient at length regarding her condition along with treatment options. At this point she is quite symptomatic having pain and mechanical symptoms despite conservative measures. After a thorough discussion she opts to proceed with surgery. We will plan to proceed with a revision right total knee arthroplasty. Risks and benefits were discussed at length in layman's terms. We will institute DVT prophylaxis postoperatively.
[~2024-09-05 07:52] MED LIST: TRANEXAMIC 1,000 MG/100ML-NACL 1,000 MG in SALINE 1 100ML.BAG IVPB PRN
[2024-09-05] MEDS ORDERED: LIDOCAINE 1% (10MG/ML) FOR IV START INTRADERMA PRN (08:17)
[2024-09-05] MEDS ORDERED: fentaNYL (PF) 50 MCG/ML 2 ML AMP IVP PRN (08:17)
[2024-09-05] MEDS: LACTATED RINGERS 1,000 ML IV SCH (08:32)
[2024-09-05] MEDS: MELOXICAM 7.5 MG TAB PO PRN (08:32)
[2024-09-05] MEDS: ONDANSETRON 4 MG/2 ML VIAL IVP ONE (08:32)
[2024-09-05] MEDS: ACETAMINOPHEN TAB 500 MG TAB PO PRN (08:32)
[2024-09-05] MEDS: DEXAMETHASONE SOD PHOSPHATE 4 MG/ML 1 ML VIAL IV ONE (08:33)
[2024-09-05 08:37] LABS: Glucose,Whole Blood 165 mg/dL (70-110)
[2024-09-05] MEDS: MIDAZOLAM 2 MG/2 ML VIAL IV PRN (08:50)
[2024-09-05] MEDS: IV FLUID CONTINUATION 1,000 ML IV ONE (08:53)
--- NOTE | 2024-09-05 09:54 | P.ANPRN ---
Procedure Note - Anesthesia - Nerve Block Performed Right Adductor Canal Infusion Time Out Performed: Yes (0848) Date of Procedure: 09/05/24 Location of Patient: PreOp Indication: Acute Post-Operative Pain, Dx/Pain Location (Right knee), Requested by Surgeon Specifically requested for management of pain by DrCheko: Marques Rizzo Sedation Type: Sedate with meaningful contact maintained Preparation: Sterile Prep, Sterile Dressing Position: Supine Catheter: Indwelling Needle Types: Pajunk Needle Gauge: 18 Ultrasound used to visualize needle placement: Yes Ultrasound used to observe medication spread: Yes Injectate: 0.5% Ropivacaine (see comment for volume) (20 mL +10 mL of normal saline) Blood Aspirated: No Pain Paresthesia on Injection Noted: No Resistance on Injection: Normal Image Stored and Saved: Yes Events: Uneventful and Well Tolerated Right iPack Single Time Out Performed: Yes Date of Procedure: 09/05/24 Location of Patient: PreOp Indication: Acute Post-Operative Pain, Dx/Pain Location (right knee), Requested by Surgeon Specifically requested for management of pain by Dr.: Marques Rizzo Sedation Type: Sedate with meaningful contact maintained Preparation: Sterile Prep Position: Left Lateral Catheter: None Needle Types: Pajunk Needle Gauge: 21 Ultrasound used to visualize needle placement: Yes Ultrasound used to observe medication spread: Yes Injectate: 0.5% Ropivacaine (see comment for volume) (20 mL +10 mL of normal saline) Blood Aspirated: No Pain Paresthesia on Injection Noted: No Resistance on Injection: Normal Image Stored and Saved: Yes Events: Uneventful and Well Tolerated
[2024-09-05] MEDS ORDERED: TRANEXAMIC 1,000 MG/100ML-NACL PREMIX BAG ONE (10:00)
[2024-09-05] MEDS ORDERED: ePHEDrine 50 MG/ML 1 ML VIAL ONE (10:00)
[2024-09-05] MEDS ORDERED: PROPOFOL 10 MG/ML 20 ML VIAL IV ONE (10:00)
[2024-09-05] MEDS ORDERED: fentaNYL (PF) 50 MCG/ML 2 ML AMP ONE (10:00)
[2024-09-05] MEDS ORDERED: MIDAZOLAM 2 MG/2 ML VIAL ONE (10:00)
[2024-09-05] MEDS ORDERED: ROPIVACAINE 5 MG/ML 30 ML VIAL ONE (10:00)
[2024-09-05] MEDS ORDERED: SODIUM CHLORIDE 0.9% (PF) 10 ML VIAL ONE (10:00)
[2024-09-05] MEDS: ceFAZolin 1,000 MG in SODIUM CHLORIDE 0.9% 1,000 ML IRRIGATION ONE (10:36)
[2024-09-05] MEDS ORDERED: NALOXONE 0.4 MG/ML 1 ML VIAL IV PRN (12:22)
[2024-09-05] MEDS ORDERED: HYDROcodone/APAP 5-325MG 1 EACH TAB PO PRN (12:22)
[2024-09-05] MEDS ORDERED: hydrOXYzine pamoate 25 MG CAP PO PRN (12:22)
[2024-09-05] MEDS ORDERED: MAGNESIUM HYDROXIDE 2,400 MG/30 ML CUP PO PRN (12:22)
[2024-09-05] MEDS ORDERED: HYDROmorphone 0.5 MG/0.5 ML SYRINGE IVP PRN (12:22)
--- NOTE | 2024-09-05 12:46 | P.OP ---
Date of Procedure: 09/05/24 Preoperative Diagnosis: Painful right knee unicompartmental arthroplasty Postoperative Diagnosis: Same in addition to progressive lateral and patellofemoral compartment osteoarthrosis Procedure(s) Performed: Revision right total knee arthroplasty with removal of femoral and tibial components Implants: Depuy TC3 size 3 cemented femoral component, size 2.5 tibial component, 29 mm metaphyseal sleeve, 5 mm medial tibial augment, 13 x 60 mm cemented tibial stem, 10 mm articular surface, 32 mm cemented patellar component. Anesthesia: regional, spinal Surgeon: Marques Rizzo Radar Repairer #1: Guy Rodríguez Estimated Blood Loss (ml): 50 Pathology: none sent Condition: stable Disposition: PACU Indications for Procedure: The patient is a 63-year-old female who presents with progressive right knee pain after previously undergoing medial compartment arthroplasty despite conservative measures. Clinically she was noted to have evidence of progression of her lateral and patellofemoral compartment osteoarthrosis. A discussion of the risks and benefits of operative intervention versus continued conservative measures was made with the patient. She opted to proceed with surgery. Operative risks include infection, neurovascular injury, development of blood clots, fracture, possible component loosening/failure and possible need for subsequent procedures was discussed. Informed consent was obtained. Operative Findings: As below Description of Procedure: The patient was brought to the operating room, and after induction of spinal anesthesia the right lower extremity was prepped and draped in a normal fashion. The tourniquet was inflated to 270 mm marker. A longitudinal incision extending 3 finger breaths above the superior pole of patella extending to the medial aspect the tibial tubercle was then made. The skin and subcutaneous tissues were divided sharply. Electrocautery was used for hemostasis. A medial parapatellar arthrotomy was performed. The medial soft tissues to include the superficial and deep portions of the medial collateral ligament were elevated subperiosteally. The patella was everted. A portion of the retropatellar fat pad was excised sharply. The anterior cruciate ligament was sacrificed. Blunt retractors were placed. The medial tibial component was then removed utilizing a small sagittal saw to break the bone cement interface along with small osteotomes. This was removed without much bone loss. The femoral component was removed in a similar fashion. A starting hole was made in the distal femur 1 cm anterior to the posterior cruciate ligament origin. An intramedullary femoral guide was then inserted planning on 5 valgus distal cut with 9 mm distal resection. The cutting block was pinned in place. The distal cut was then made. The posterior referencing sizing guide was utilized. I felt size 3 was most appropriate. 3 of external rotation was built into the system and verified off the trans-epicondylar axis and the posterior condyles. The cutting block was pinned in place. The anterior, posterior, and chamfer cuts then made. Bone fragments were removed. The intercondylar guide was placed and the notch cut was made with a sagittal saw. The bone block was removed in one fragment. The trial component was then placed. There is good anterior to posterior and medial to lateral fit. The trial component was removed. Attention was then paid towards preparing the proximal tibia. An extra medullary guide was utilized in line with the tibial shaft and second metatarsal distally. I planned on 8 mm resection from the lateral compartment. The cutting block was pinned in place. The proximal tibial cut was then made. The bone was removed in one fragment. The remnants of the medial and lateral menisci were excised at the capsular junction with electrocautery. The tibia sized most appropriately at size 2.5. The tibial shaft was then reamed up to 14 mm proximally planning on a 13 x 60 mm stem. The 29 mm tibial broach was inserted in the appropriate rotation. This was fully seated. A cleanup cut was made laterally over this. There was bony deficit medially therefore I planned on a 5 mm medial tibial wedge. The cutting block was placed and this cut was made. The trial femoral and tibial components were placed along with a 10 mm articular surface. I was able to obtain full flexion and extension with internal and external rotation. After several flexion and extension cycles, the tibial rotation was marked with electrocautery line with the medial one third of the tibial tubercle. Attention was then paid towards preparing the patella. A patella reamer was utilized taking stem to 14 mm of bone stock. A good flush cut was made. The patella sized most appropriately 32 mm. The peg holes were drilled. The trial components placed. I had good patellofemoral tracking with no hands technique. The trial components were then removed. The flexion and extension gaps were checked and felt to be symmetric at 10 mm. A trial components were then removed. The bony surfaces were prepared with pulsatile lavage and dried. The tibial component was then cemented place was fully seated. Excess cement was removed. Care was taken to avoid any cement around the metaphyseal cone. The femoral component cemented place and was fully seated. Excess cement was removed. The trial 10 mm articular surface was placed and the knee was put in full extension. The patella component was cemented place. After the cement had sufficiently hardened, the knee was again taken through a range of motion. Again I was able to obtain full flexion and extension with varus and valgus stress. The trial 10 mm articular surface was removed and the final one inserted. This was fully seated. Care was taken to avoid any soft tissue interposition. Pulsatile lavage was again utilized. The medial parapatellar arthrotomy was closed with #2 Ethibond suture. The tourniquet was deflated with approximately 95 minutes total tourniquet time. Final hemostasis was obtained with the cautery. There was minimal bleeding therefore a deep drain was not placed. The subcutaneous tissues were reapproximated with interrupted 2-0 Vicryl sutures. The skin was reapproximated with 3-0 subcuticular strata fix suture. Skin tape and adhesive was applied. A sterile dressing was applied. The patient was awoken from sedation and transferred to recovery room in good condition. Blood loss was estimated at 50 mL. No complications were incurred. Sponge and needle counts were correct at the end of the case. Guy OLIVARES assisted during the major components of this case to include exposure, bone resection, implantation, and closure.
[2024-09-05] MEDS: ROPIVACAINE 1,100 MG, SODIUM CHLORIDE 0.9% 500 ML 330 ML, EMPTY PAIN BALL 1 EACH MISCELLANE PRN (13:05)
--- NOTE | 2024-09-05 13:29 | XR ---
EXAMINATION TYPE: XR knee limited RT DATE OF EXAM: 09/05/2024 1:20 PM COMPARISON: None. CLINICAL INDICATION: Female, 63 years old with history of Evaluation for Postop abnormality and align ment, pain TECHNIQUE: 2 view(s) obtained. FINDINGS: New revision has tibial femoral compartments. Postsurgical soft tissue changes are present. No joint effusion is evident IMPRESSION: 1. No acute fractures post knee replacement [facility], , 09/05/2024 1:27 PM
[2024-09-05] MEDS: IV FLUID CONTINUATION 500 ML IV ONE (14:14)
[2024-09-05] MEDS: HYDROmorphone 0.5 MG/0.5 ML SYRINGE IVP PRN (14:57)
[2024-09-05] MEDS: HYDROcodone/APAP 7.5-325MG 1 EACH TAB PO PRN (18:39)
[2024-09-05 20:27] LABS: Glucose,Whole Blood 179 mg/dL (70-110)
--- NOTE | 2024-09-05 20:59 | P.CONS ---
History of Present Illness - Reason for Consult Consult date: 09/05/24 Medical Management - History of Present Illness Patient is a 63-year-old female with history of diabetes mellitus controlled with insulin pump and hypothyroidism who is status post right total knee arthroplasty secondary to osteoarthritis. Sound physicians consulted for medical management. Patient states her pain is well-controlled, she is voiding without difficulty and passing flatus, but has not yet had a bowel movement. She is also ambulating to the bathroom. Patient denies any chest pain, shortness of breath, abdominal pain, nausea, vomiting, urinary or bowel complaints. No new labs. Pertinent positives and negatives as discussed in HPI, a complete review of systems was performed and all other systems are negative. Patient seen and examined at bedside. Physical examination: Vital signs reviewed General: nontoxic, no distress, appears at stated age Derm: warm, dry, intact Head: atraumatic, normocephalic, symmetric Eyes: anicteric sclera Mouth: no lip lesion, mucus membranes moist Cardiovascular: S1 S2 reg, no murmur Lungs: CTA bilateral, no rhonchi, no rales, no accessory muscle use Abdominal: soft, non-tender to palpation, nondistended Extremities: No cyanosis, clubbing, or pedal edema. Neuro: Alert, Oriented to person, time and place, Gross neurological examination did not reveal any focal deficits. Cranial nerves II to XII grossly intact. Bilateral upper and lower extremity muscle strength intact and sensation intact. Psych: well appearing, appropriate affect Assessment/Plan: 63-year-old female with diabetes mellitus controlled with insulin pump and hypothyroidism who is status post right total knee arthroplasty secondary to osteoarthritis. We have been asked to see the patient in consultation for medical management. Acute: Osteoarthritis of the right knee status post revision TKA POD #0 Pain and DVT control per primary team Chronic: Insulin-dependent diabetes mellitus Per patient basal rate is 1.1 currently, but can fluctuate BG seem to be within range May discontinue insulin pump while inpatient Accu-Cheks per [facility] Hypoglycemia precautions Hypothyroidism Continue Synthroid 100 mcg daily CODE STATUS: Full Patient has been deemed medically optimized for discharge. Thank you for this consultation. Past Medical History Past Medical History: Diabetes Mellitus, Thyroid Disorder Additional Past Medical History / Comment(s): IDDM type II, neuropathy bilateral feet, hypothyroid. History of Any Multi-Drug Resistant Organisms: MRSA Year Discovered:: 2012 MDRO Source:: spider bite Past Surgical History: Section, Joint Replacement, Orthopedic Surgery Additional Past Surgical History / Comment(s): R knee surgeries x3 including partial replacement, pins screws in rt ankle, plates in rt wrist, scope of scar tissue on rt ankle Past Anesthesia/Blood Transfusion Reactions: Postoperative Nausea & Vomiting (PONV) Past Psychological History: No Psychological Hx Reported Additional Psychological History / Comment(s): Pt resides with her spouse. She is normally independent. Smoking Status: Never smoker Past Alcohol Use History: Rare Past Drug Use History: None Reported - Past Family History Mother Family Medical History: Diabetes Mellitus Additional Family Medical History / Comment(s): IDDM type 1 Father Family Medical History: Cancer Additional Family Medical History / Comment(s): Father is . Medications and Allergies Home Medications Medication Instructions Recorded Confirmed Type Levothyroxine Sodium [Synthroid] 100 mcg PO MOTUWETHFRSA 08/31/21 09/05/24 History Insulin Aspart (For Pump) [NovoLOG 0.01 unit SQ-PUMP CONTINUOUS 06/26/24 09/05/24 History (For Pump)] Allergies Allergy/AdvReac Type Severity Reaction Status Date / Time JEISON Inhibitors Allergy Rash/Hives Verified 09/05/24 08:31 Physical Exam Vitals: Vital Signs Temp Pulse Resp BP Pulse Ox 09/05/24 18:58 97.7 F 76 17 142/83 96 09/05/24 17:51 67 14 124/69 94 L 09/05/24 17:00 69 14 126/71 93 L 09/05/24 16:00 68 14 128/62 96 09/05/24 15:00 71 14 96 09/05/24 14:30 70 14 140/71 96 09/05/24 14:00 72 14 145/75 96 09/05/24 13:45 76 14 144/74 97 09/05/24 13:30 66 18 141/73 97 09/05/24 13:15 64 18 130/76 98 09/05/24 13:00 65 12 133/68 97 09/05/24 12:43 97.6 F 72 12 103/58 97 09/05/24 09:08 68 18 127/67 98 09/05/24 08:16 97.9 F 78 18 139/77 97 Intake and Output 09/05/24 09/05/24 09/05/24 06:59 14:59 22:59 Intake Total 651 Output Total 50 Balance 601 Intake: IV 651 Output: Estimated Blood Loss 50 Other: Weight 82.4 kg 82.4 kg Results Labs: Abnormal Lab Results - Last 24 Hours (Table) 09/05/24 09/05/24 Range/Units 08:28 20:26 POC Glucose (mg/dL) 165 H 179 H (70-110) mg/dL
[2024-09-05] MEDS: SENNOSIDES-DOCUSATE SODIUM 1 EACH TAB PO SCH (23:00)
[2024-09-05] MEDS: HYDROmorphone 1 MG/ML 1 ML SYRINGE IVP PRN (23:02)
[2024-09-06 06:06] LABS: Glucose,Whole Blood 138 mg/dL (70-110)
[2024-09-06] MEDS: LEVOTHYROXINE 112 MCG TAB PO SCH (06:09)
[2024-09-06] MEDS: ONDANSETRON 4 MG/2 ML VIAL IVP PRN (07:02)
--- NOTE | 2024-09-06 07:08 | P.PN ---
Progress Note - Text Progress Note Date: 09/06/24 Postoperative day # 1 status post total knee arthroplasty, on adductor canal perineural catheter placed for postoperative analgesia. Ropivacaine 0.2% 8 mL per hour through ON-Q pump continuous infusion. Pain control fair. On visual analog scale 4/10 Patient is taking PRN oral pain medications. Catheter site: Looks Ok. There is no erythema or tenderness. Continue with the current pain management plan and will follow.
[2024-09-06] MEDS: RIVAROXABAN 10 MG TAB PO SCH (08:35)
[2024-09-06 09:06] VITALS: BP 101/66; PULSE 69; RESP 16; TEMP 97.8
[2024-09-06 09:48] LABS: Basophils # (A) 0.04 X 10*3/uL (0.00-0.10); Basophils % (A) 0.3 %; Eosinophils # (A) 0.03 X 10*3/uL (0.04-0.35); Eosinophils % (A) 0.3 %; HCT 36.1 % (37.2-46.3); HGB 11.7 g/dL (12.0-15.0); Lymphocytes # (A) 1.72 X 10*3/uL (0.90-5.00); Lymphocytes % (A) 14.8 %; MCH 30.6 pg (27.0-32.0); MCHC 32.4 g/dL (32.0-37.0); MCV 94.5 FL (80.0-97.0); Mean Platelet Volume 10.6 FL (9.5-12.2); Monocytes # (A) 0.96 X 10*3/uL (0.20-1.00); Monocytes % (A) 8.3 %; NRBC Per 100 WBC 0 X 10*3/uL (0.00-0.01); Neutrophils # (A) 8.84 X 10*3/uL (1.80-7.70); Platelet Count 236 X 10*3/uL (140-440); RBC 3.82 X 10*6/uL (4.10-5.20); RDW 12.3 % (11.5-14.5); WBC 11.62 X 10*3/uL (4.50-10.00)
[2024-09-06 11:45] LABS: Glucose,Whole Blood 163 mg/dL (70-110)
--- NOTE | 2024-09-06 12:50 | P.PN ---
Subjective Progress Note Date: 09/06/24 Principal diagnosis: Status post revision right total knee arthroplasty Patient evaluated at bedside, she is resting comfortably in her hospital chair, is present at bedside. Patient has been having a lot of nausea and vomiting today, she feels the IV pain medication as causes. She did ambulate well with therapy. She has no headaches, lightheadedness, chest pain or shortness of breath. She has been urinating with no issues since surgery. Objective - Vital Signs Vital signs: Vital Signs Temp 97.8 F 09/06/24 07:24 Pulse 69 09/06/24 08:35 Resp 16 09/06/24 08:35 BP 101/66 09/06/24 07:24 Pulse Ox 96 09/06/24 07:24 FiO2 Intake & Output 09/05/24 09/06/24 09/06/24 18:59 06:59 18:59 Intake Total 651 Output Total 50 Balance 601 Weight 82.4 kg Intake: IV 651 Output: Estimated Blood Loss 50 Other: # Voids 1 - Exam Right lower extremity: Incision is clean, dry, and intact. The exofin fusion tape is in good condition. There is minimal soft tissue swelling and ecchymosis surrounding the medial and lateral aspects of the incision. Calf is soft, no tenderness with palpation. Plantar flexion, dorsiflexion, EHL, FHL are intact. Sensory exam to light touch throughout the extremity is intact, dorsal pedis pulses 2+. - Labs CBC & Chem 7: 09/06/24 03:48 Labs: Abnormal Lab Results - Last 24 Hours (Table) 09/05/24 09/06/24 09/06/24 Range/Units 20:26 03:48 06:05 WBC 11.62 H (4.50-10.00) X 10*3/uL RBC 3.82 L (4.10-5.20) X 10*6/uL Hgb 11.7 L (12.0-15.0) g/dL Hct 36.1 L (37.2-46.3) % Neutrophils # 8.84 H (1.80-7.70) X 10*3/uL Eosinophils # 0.03 L (0.04-0.35) X 10*3/uL POC Glucose (mg/dL) 179 H 138 H (70-110) mg/dL 09/06/24 Range/Units 11:44 WBC (4.50-10.00) X 10*3/uL RBC (4.10-5.20) X 10*6/uL Hgb (12.0-15.0) g/dL Hct (37.2-46.3) % Neutrophils # (1.80-7.70) X 10*3/uL Eosinophils # (0.04-0.35) X 10*3/uL POC Glucose (mg/dL) 163 H (70-110) mg/dL Assessment and Plan Assessment: Postoperative day #1 status post revision right total knee arthroplasty Plan: Pain control, plan for discharge home on Howe 7.5 mg / 325 mg. Will also utilize Zofran as needed DVT prophylaxis, Eliquis 2.5 mg twice a day for 14 days Wound care instructions were discussed with patient, this to include bandaging and showering instructions Icing and elevating techniques discussed Home PT/nursing Medical recommendations appreciated Discharge planning: Patient stable for discharge home today Time with Patient: Less than 30
--- NOTE | 2024-09-06 12:54 | P.DS ---
Providers Date of admission: 09/05/24 07:52 Expected date of discharge: 09/06/24 Attending physician: Marques Rizzo Consults: 09/05/24 12:22 Consult Physician Routine Consulting Provider: Harley Le Consult Reason/Comments: medical management s/p revision right total knee arthroplasty Do you want consulting provider notified?: Yes Primary care physician: [facility] Course: Date of admission: 09/05/2024 Date of discharge: 09/06/2024 Admission diagnosis: Status post revision right total knee arthroplasty Discharge diagnosis: Same Attending physician: Dr. Rizzo Surgical procedures: Revision right total knee arthroplasty Brief history: Patient is a 63-year-old female with a history of a previous medial compartment arthroplasty of the right knee.. At this point patient has failed conservative treatment measures and has opted to proceed with a elective revision right total knee arthroplasty. Hospital course: Details of patient's surgery can be found in operative report. Patient tolerated the procedure well and was subsequently transported to orthopedic floor. Patient's orthopeidc and medical care was provided daily. Patient had daily laboratory tests performed for evaluation of overall blood counts. Patient had daily physical therapy to include strengthening range of motion as well as education with walker ambulation. Patient was treated with Xarelto for their postoperative DVT prophylaxis during their inpatient stay. Patient was noted to have a relatively uneventful postoperative course. Patient reported satisfactory pain control with oral pain medications by postoperative day 0. Patient showed satisfactory progress with physical therapy. Patient moved steadily through the program and had no difficulty meeting the goals by postoperative day 1. Given patient's otherwise satisfactory course and having met physical therapy goals, plan is to discharge patient home on postoperative day 1. Discharge condition/disposition: Patient will be discharged home in stable condition. Discharge medications: Instructions are given on resumption of patient's normal daily medications per primary care recommendation, in addition patient will be prescribed Boley 7.5 mg / 325 mg, senna S, Zofran 8 mg, Eliquis 2.5 mg. Discharge instructions: 1. Wound care and infection precautions, keep incision dry and covered while showering, no lotions, creams, moisturizers. No soaking, tubs, pools, hottubs. Do not scrub over the incision. 2. Weight-bear as tolerated with walker / cane until follow-up. 3. Ice and elevate when necessary. Do not exceed 20 minutes per hour with ice pack. 4. Utilize compression sleeve until seen at first follow up appointment. 5. Visiting nursing care. 6. Home physical therapy including home CPM. 7. Pain meds and anticoagulants per prescription. 8. Pain medication has potential to cause constipation. Increase oral fluid and fiber intake. Contact primary care provider if you have not had a bowel movement within 48 hours after discharge 9. No anti-inflammatory medication until discussed at first post operative visit, this including Motrin, Aleve, Mobic, Diclofenac. 10. Follow up in office at 2 weeks postop with Saurabh Garcia PA-C/Guy Davis 11. Follow up with your primary care doctor 7-10 days after discharge. 12. Contact [facility] with any questions, . Procedures: Revision right total knee arthroplasty Patient Condition at Discharge: Good Plan - Discharge Summary Discharge Rx Participant: No New Discharge Prescriptions: New Apixaban [Eliquis] 2.5 mg PO BID #60 tab HYDROcodone/APAP 7.5-325MG [Boley 7.5] 1 each PO Q6HR PRN #28 tab PRN Reason: Pain Sennosides/Docusate Sodium [Senna-S 8.6-50 mg Tablet] 2 each PO DAILY PRN #30 tablet PRN Reason: Constipation ondansetron HCL [Zofran] 8 mg PO Q12HR PRN #21 tab PRN Reason: Nausea No Action Levothyroxine Sodium [Synthroid] 100 mcg PO MOTUWETHFRSA Insulin Aspart (For Pump) [NovoLOG (For Pump)] 0.01 unit SQ-PUMP CONTINUOUS Discharge Medication List Levothyroxine Sodium [Synthroid] 100 mcg PO MOTUWETHFRSA 08/31/21 [History] Insulin Aspart (For Pump) [NovoLOG (For Pump)] 0.01 unit SQ-PUMP CONTINUOUS 06/26/24 [History] Apixaban [Eliquis] 2.5 mg PO BID #60 tab 09/06/24 [Rx] HYDROcodone/APAP 7.5-325MG [Boley 7.5] 1 each PO Q6HR PRN #28 tab 09/06/24 [Rx] Sennosides/Docusate Sodium [Senna-S 8.6-50 mg Tablet] 2 each PO DAILY PRN #30 tablet 09/06/24 [Rx] ondansetron HCL [Zofran] 8 mg PO Q12HR PRN #21 tab 09/06/24 [Rx] Follow up Appointment(s)/Referral(s): Guy Rodríguez, BRI [PHYSICIAN WIRE BRUSH MAKER] - 2 Weeks [facility],Equipment [NON-STAFF] - As Needed (*Call [facility] once home to arrange delivery of the Continous Passive Motion (CPM) machine. ) [facility], [NON-STAFF] - 1-2 Days ([facility] will call you to schedule your in home physical therapy visits. ) Patient Instructions/Handouts: Knee Replacement (GEN) Activity/Diet/Wound Care/Special Instructions: Orthopedic Discharge Instructions: 1. Wound care and infection precautions, keep incision dry and covered while showering, no lotions, creams, moisturizers. No soaking, pools, hot tubs. Do not scrub over incision. 2. Weight-bear as tolerated with walker / cane until follow-up. 3. Ice and elevate when necessary. Do not exceed 20 minutes per hour with ice pack. 4. Utilize compression sleeve until seen at first follow up appointment. 5. Pain meds and anticoagulants per prescription. 6. Pain medication has potential to cause constipation. Increase oral fluid and fiber intake. Contact primary care provider if you have not had a bowel movement within 48 hours after discharge. 7. No anti-inflammatory medication until discussed at first post operative visit, this including Motrin, Aleve, Mobic, Diclofenac. 8. Follow up in office at 2 weeks postop with Saurabh Garcia PA-C / Guy Rodríguez PA-C 9. Follow up with your primary care doctor 7-10 days after discharge. 10. Contact [facility] with any questions, . Keep incision clean, dry, intact. While showering, cover fusion tape with Saran wrap. Keep fusion tape on until follow-up appointment in office in 2 weeks. Discharge Disposition: HOME WITH HOME HEALTH SERVICES
== END 2024-09-06 13:45 | disposition home health service (06) | DRG 468 ==
LOC: 2ORMAIN 07:52 → 4SSUR 17:36
PROVIDERS: ADMIT Orthopaedic Surgery; ATTEND Orthopaedic Surgery
PROC: 0SPC0JZ Removal of Synthetic Substitute from Right Knee Joint, Open Approach (ICD-10-PCS; 2024-09-05)
PROC: 0JH Subcutaneous Tissue and Fascia, Insertion (ICD-10-PCS; 2024-09-05)
PROC: 3E0T3BZ Introduction of Anesthetic Agent into Peripheral Nerves and Plexi, Percutaneous Approach (ICD-10-PCS; 2024-09-05)
PROC: 0SRC0J9 Replacement of Right Knee Joint with Synthetic Substitute, Cemented, Open Approach (ICD-10-PCS; principal; 2024-09-05 10:05)
DX: T84.84XA Pain due to internal orthopedic prosthetic devices, implants and grafts, initial encounter (principal); M17.11 Unilateral primary osteoarthritis, right knee; E03.9 Hypothyroidism, unspecified; E11.42 Type 2 diabetes mellitus with diabetic polyneuropathy; Z79.890 Hormone replacement therapy; Z79.4 Long term (current) use of insulin; Z96.41 Presence of insulin pump (external) (internal); Z86.19 Personal history of other infectious and parasitic diseases; Z88.8 Allergy status to other drugs, medicaments and biological substances; Y79.2 Prosthetic and other implants, materials and accessory orthopedic devices associated with adverse incidents
CPT/HCPCS: 64448; 64999; 85025